=== PATIENT | male | born 1970 | race Caucasian/White ===

== ENCOUNTER 2025-08-25 20:55 | Emergency (ER) | payer SELFPAY ==
[~2025-08-25] VITALS: Ht 165.1 cm; Wt 75.0 kg
[2025-08-25 21:18] VITALS: TEMP 98.1; O2SAT 98
[2025-08-25] MEDS: LIDOCAINE HCL 1% 20ML VIAL INFIL ONE (22:45)
[2025-08-25] MEDS: TETANUS, DIPHTHERIA, PERTUSSIS VAC/PF 0.5ML (>10YR OLD) IM ONE (22:45)
[2025-08-25] MEDS: ACETAMINOPHEN 500MG TABLET PO ONE (23:54)
[2025-08-26] MEDS ORDERED: BO1 TP (00:38)
[2025-08-26 00:51] VITALS: BP 127/68; PULSE 60; RESP 16; O2SAT 100
== END 2025-08-26 00:51 | disposition home or self-care (01) ==
LOC: ER 20:55
DX: S00.03XA Contusion of scalp, initial encounter (principal); Y08.89XA Assault by other specified means, initial encounter; Y93.89 Activity, other specified; Y92.89 Other specified places as the place of occurrence of the external cause; Y99.8 Other external cause status
CPT/HCPCS: 99285; 70450; 73090; 73130; 90715; 90471; J2003